=== PATIENT | male | born 1945 | race Caucasian/White ===

== ENCOUNTER 2019-08-30 14:50 | Inpatient (IN) ==
--- NOTE | 2019-08-30 15:41 | Diag Imaging Result Doc PS360 ---
EXAM: CHEST-1 VIEW HISTORY: cough TECHNIQUE: Single view COMPARISON: None. FINDINGS: The lungs are well expanded. The heart is not enlarged. The vessels are not distended. There are no infiltrates. No effusion identified. IMPRESSION: No pneumonia Electronically signed by Wali Jimenez 08/30/2019 3:39 PM
[2019-08-30 16:23] LABS: BASO# 0.02 X1000 (0.0-0.2); BASO% 0.3 % (0.0-0.8); EOS# 0.52 X1000 (0.0-0.7); EOS% 8.3 % (0.0-10.0); HEMATOCRIT 44.6 % (42.0-52.0); HEMOGLOBIN 14.6 g/dL (14.0-18.0); LYMPH# 1.17 X1000 (1.2-3.4); LYMPH% 18.6 % (20.5-51.1); MCH 30.1 PG (27-31); MCHC 32.7 g/dL (33-37); MONO# 0.76 X1000 (0.11-0.59); MONO% 12.1 % (1.7-9.3); MPV 10.5 FL (7.4-10.4); NEUT# 3.81 X1000 (1.4-6.5); NEUT% 60.7 % (42.2-75.2); PLT 197 X1000 (130-400); RBC 4.85 XMIL (4.7-6.1); RDW 13.4 % (11.5-14.5); WBC 6.28 X1000 (4.8-10.8)
[2019-08-30 16:43] LABS: AGAP 9; ALB/GLOB RATIO 1.4; ALKALINE PHOSPHATASE 64 U/L (32-122); BUN 16 mg/dL (8-22); CALCIUM 9.1 mg/dL (8.8-10.2); CHLORIDE 101 mmol/L (98-107); COSMO 281; ESTIMATED GFR > 60; GLUCOSE 110 mg/dL (70-104); GOT 20 U/L (10-34); GPT 22 U/L (10-44); POTASSIUM 4.2 mmol/L (3.5-5.1); SODIUM 140 mmol/L (136-145); TCO2 30 mmol/L (25-35); TOTAL BILIRUBIN 0.32 mg/dL (0.20-1.00); TOTAL PROTEIN 6.8 g/dL (6.3-8.3)
[2019-08-30] MEDS ORDERED: M.V.I.-12 10 ML, FOLIC ACID 1 MG, MAGNESIUM SULFATE 1 GM, THIAMINE 100 MG in NS 1,000 ML IV ONE (17:17)
[2019-08-30] MEDS ORDERED: ZOFRAN IV ONE (17:17)
--- NOTE | 2019-08-30 18:12 | EKG Report ---
Test Performed on : 08/30/2019 5:06:28 PM Test Reason : weakness Blood Pressure : / mmHG Vent. Rate : 074 BPM Atrial Rate : 074 BPM P-R Int : 142 ms QRS Dur : 080 ms QT Int : 390 ms P-R-T Axes : 065 014 064 degrees QTc Int : 432 ms Normal sinus rhythm. Low voltage QRS Inferior infarct , age undetermined Cannot rule out Anterior infarct , age undetermined Abnormal ECG No previous ECGs available Unconfirmed Result
--- NOTE | 2019-08-30 19:00 | PROVIDER DOCUMENTATION ---
This chart was entered by Linda Abdi Scribe, acting as scribe for Angel Graham MD. HPI-General Adult <Steven Curtis. - Last Filed: 08/30/19 20:30> - General Source: patient - History of Present Illness -Gen Adult Nature of Presenting Problems: 73 yowm presents to the ed with c/o with generalized weakness, cough and frequent falls with decreased PO intake last 2 days. pt is fearful to get up due to falls and has just been staying in his bed. he reports last week he had frequent episodes of n/v/d, abdominal pain and lumbar pain. pt denies LOC with any fall and no new injuries from fall. he is concerned of increasing diffuse weakness Location of Pain/Injury: reports: generalized (weakness) Quality of Pain: denies: other (denies pain but has generalized weakness) Severity: reports: moderate Onset/Duration: reports: 2 days ago Timing: reports: still present, intermittent, getting worse Context/Activities at Onset: reports: light activity Modifying Factors: improves with: nothing. worse with: movement Associated Symptoms: reports: cough, diarrhea, fatigue, nausea, vomiting, weakness, trouble walking. denies: back/neck pain, chest pain, fever/chills, shortness of breath Similar Symptoms Previously?: Yes Recently seen or treated by another doctor?: No <Angel Graham - Last Filed: 08/30/19 20:38> - General Chief Complaint: Weakness Stated Complaint: WEAKNESS, COUGH Time Seen by Provider: 08/30/19 15:09 Allergies/Adverse Reactions: Patient Allergies Allergy/AdvReac Type Severity Reaction Status Date / Time soap Allergy ITCHING Verified 07/10/16 19:45 Home Medications: Home Medication List Medication Instructions Recorded Confirmed Last Taken Type Aspirin [Aspir-Low] 81 mg PO DAILY 07/10/16 07/10/16 07/10/16 07:00 History Cephalexin [Keflex] 500 mg PO BID #14 capsule 07/10/16 Unknown Rx Levofloxacin [Levaquin] 500 mg PO DAILY 07/10/16 07/10/16 07/10/16 07:00 History Mv,Toribio,Min/Iron/Folic Acid/Lut 1 each PO DAILY 07/10/16 07/10/16 07/10/16 07:00 History [[employer]] Tamsulosin HCl 0.4 mg PO DAILY 07/10/16 07/10/16 07/10/16 07:00 History Review of Systems - Adult - REVIEW OF SYSTEMS - ADULT Constitutional: denies: chills, fever Eyes: reports: no symptoms reported Ears, Nose, Mouth & Throat: reports: no symptoms reported Cardiovascular: reports: see HPI, edema. denies: chest pain, palpitations Respiratory: reports: see HPI, cough. denies: shortness of breath, wheezing Gastrointestinal: reports: abdominal pain, diarrhea, nausea, poor appetite, vomiting Genitourinary: reports: no symptoms reported Musculoskeletal: reports: see HPI, back pain, muscle weakness (generalized). denies: neck pain Integumentary: reports: no symptoms reported Neurological: denies: dizziness/vertigo, headache/migraines Psychiatric: reports: no symptoms reported Endocrine: reports: no symptoms reported Hematologic/Lymphatic: reports: no symptoms reported Allergic/Immunologic: reports: no symptoms reported All Other Systems: Reviewed and Negative <Angel Graham - Last Filed: 08/30/19 20:38> Past History - Adult - PAST MEDICAL HISTORY-ADULT Review of Records: reports: Old Records Reviewed, Nursing Assessment Review, Medications Reviewed, Social history reviewed & non-contributory. Major Childhood Illnesses: reports: denies history Cardiovascular: reports: denies history Respiratory: reports: denies history Gastrointestinal: reports: denies history Obstetrical/Gynecological: reports: denies history Genitourinary: reports: denies history Musculoskeletal: reports: denies history Neurological: reports: denies history Endocrine/Immune: reports: denies history Other Conditions: reports: denies history - PRIOR SURGERIES/PROCEDURES Surgical/Procedure History: reports: recent surgery (lumbar spine), orthopedic (extremity), back/neck - IMMUNIZATION STATUS Childhood Immunizations: See Nurse Assessment Flu Vaccine: See Nurse Assessment - FAMILY HISTORY Family History: reviewed, not pertinent - SOCIAL HISTORY Smoking: quit greater than 1 year Alcohol Use Frequency: never Living Situation: family <Angel Graham - Last Filed: 08/30/19 20:38> Physical Exam-General - PHYSICAL EXAM-ADULT Initial Vital Signs Reviewed: Yes - CONSTITUTIONAL General Appearance: appears well, alert, no apparent distress (nontoxic in appearance), obese - EYES Eyes: PERRL/EOMI, pink conjunctivae - HEAD, EARS, NOSE, MOUTH & THROAT HENMT: moist mucous membranes - NECK Neck: non-tender, full range of motion, supple, normal inspection - RESPIRATORY Respiratory: chest non-tender, lungs clear, normal breath sounds, other (dry cough) - CARDIOVASCULAR Cardiovascular: normal peripheral pulses, regular rate, rhythm - CHEST (BREASTS) Chest/Breast: deferred - GASTROINTESTINAL (ABDOMEN) Abdominal Exam: normal bowel sounds, soft, tenderness (diffuse mild) - GENITOURINARY Male Genitalia: deferred Rectal Exam: deferred Hemoccult Exam: deferred - LYMPHATIC Lymphatic: no adenopathy - MUSCULOSKELETAL Back Exam: no CVA tenderness, no vertebral tenderness Extremity: normal range of motion, normal inspection - SKIN Integumentary: normal color, normal turgor, warm/dry - NEUROLOGIC Neurologic: grossly normal - PSYCHIATRIC Psych/Mental Status: normal mood/affect, normal thought content, normal thought process, oriented x 3 <Angel Graham - Last Filed: 08/30/19 20:38> Progress - PLAN OF CARE/RESULTS Progress/Plan/Lab Results: Vital Signs - 8 hr 08/30/19 15:38 Temperature 98.4 F Pulse Rate 88 Respiratory Rate 16 Blood Pressure 133/74 O2 Sat by Pulse Oximetry 95 Laboratory Results - last 24 hr 08/30/19 08/30/19 08/30/19 15:56 15:56 15:56 WBC RBC Hgb Hct MCV MCH MCHC RDW Std Deviation Plt Count MPV Immature Gran % (Auto) Neut % (Auto) Lymph % (Auto) [place] % (Auto) Eos % (Auto) Baso % (Auto) Immature Gran # (Auto) Neut # (Auto) Lymph # (Auto) [place] # (Auto) Eos # (Auto) Baso # (Auto) Sodium 140 Potassium 4.2 Chloride 101 Carbon Dioxide 30 Anion Gap 9 BUN 16 Creatinine 1.0 Estimated GFR/1.73 m2 > 60 BUN/Creatinine Ratio 16 Glucose 110 H POC Glucose Calculated Osmolality 281 Calcium 9.1 Total Bilirubin 0.32 AST 20 ALT 22 Alkaline Phosphatase 64 Troponin T High Sens 15 Psk-K-Usyfckeyoeb Pept 37 Total Protein 6.8 Albumin 4.0 Globulin 2.8 Albumin/Globulin Ratio 1.4 08/30/19 08/30/19 15:56 16:26 WBC 6.28 RBC 4.85 Hgb 14.6 Hct 44.6 MCV 92.0 MCH 30.1 MCHC 32.7 L RDW Std Deviation 13.4 Plt Count 197 MPV 10.5 H Immature Gran % (Auto) 0.0 Neut % (Auto) 60.7 Lymph % (Auto) 18.6 L [place] % (Auto) 12.1 H Eos % (Auto) 8.3 Baso % (Auto) 0.3 Immature Gran # (Auto) 0.00 Neut # (Auto) 3.81 Lymph # (Auto) 1.17 L [place] # (Auto) 0.76 H Eos # (Auto) 0.52 Baso # (Auto) 0.02 Sodium Potassium Chloride Carbon Dioxide Anion Gap BUN Creatinine Estimated GFR/1.73 m2 BUN/Creatinine Ratio Glucose POC Glucose 112 H Calculated Osmolality Calcium Total Bilirubin AST ALT Alkaline Phosphatase Troponin T High Sens Oti-H-Krjggyguzgk Pept Total Protein Albumin Globulin Albumin/Globulin Ratio Orders Category Date Time Status CT ABD/PELVIS W/IV CONT ONLY [CT] Stat Exams 08/30/19 18:15 Completed cxr [CHEST-1 VIEW] [RAD] Stat Exams 08/30/19 15:14 Completed CBC WITH ELECTRONIC DIFF [HEME] Stat Lab 08/30/19 15:56 Completed COMPREHENSIVE METABOLIC PANEL [CHEM] Stat Lab 08/30/19 15:56 Completed PRO B-NATRIURETIC PEPTIDE Stat Lab 08/30/19 15:56 Completed TROPONIN T HIGH SENSITIVITY Stat Lab 08/30/19 15:56 Completed Mvi [M.v.i.-12] 10 ml Med 08/30/19 17:17 Discontinued Folic Acid 1 mg Magnesium Sulfate 1 gm Thiamine 100 mg 0.9% Sodium Chloride Inj [Ns] 1,000 ml IV NOW Ondansetron [Zofran] Med 08/30/19 17:17 Discontinued 4 mg IV NOW ONE EKG [EKG] Stat Ther 08/30/19 15:09 Draft Result Diagrams: 08/30/19 15:56 08/30/19 15:56 - CT/MRI 1 CT Study: Abdomen, Pelvis Impression: Abnormal (XAM: CT ABD/PELVIS W/IV CONT ONLY HISTORY: vomiting/diarrhea, abdo pain TECHNIQUE: CT abdomen and pelvis with intravenous contrast. No oral contrast ordered. COMPARISON: None. FINDINGS: No focal hepatic abnormality. There may be fatty infiltration. No calcified gallstones or adjacent inflammation. No splenomegaly. Normal pancreas, adrenal glands, and kidneys. No hydronephrosis. No aortic aneurysm. Moderate atherosclerosis. There are fluid distended loops of small bowel in the mid and left abdomen. The distal small bowel loops are not dilated. There are scattered colonic diverticula. Normal appendix. No abscess. The urinary bladder is only mildly distended. Normal prostate. Prominent degenerative spine changes. IMPRESSION: 1.Small bowel obstruction 2.Colonic diverticulosis This exam was performed using automated exposure control, adjustment of mA or kV according to patient size, and/or use of iterative reconstruction technique. Electronically signed by Wali Jimenez 08/30/2019 8:12 PM 08/30/192011 Interpreting Physician: Wali Jimenez MD Dictated Date/Time: 08/30/192009 cc: Angel Graham MD; None,PCP) <Steven Curtis - Last Filed: 08/30/19 20:30> - PLAN OF CARE/RESULTS Progress/Plan/Lab Results: Vital Signs - 8 hr 08/30/19 15:38 Temperature 98.4 F Pulse Rate 88 Respiratory Rate 16 Blood Pressure 133/74 O2 Sat by Pulse Oximetry 95 Orders Category Date Time Status cxr [CHEST-1 VIEW] [RAD] Stat Exams 08/30/19 15:14 Completed CBC WITH ELECTRONIC DIFF [HEME] Stat Lab 08/30/19 15:09 Uncollected COMPREHENSIVE METABOLIC PANEL [CHEM] Stat Lab 08/30/19 15:09 Uncollected PRO B-NATRIURETIC PEPTIDE Stat Lab 08/30/19 15:09 Uncollected TROPONIN T HIGH SENSITIVITY Stat Lab 08/30/19 15:09 Uncollected EKG [EKG] Stat Ther 08/30/19 15:09 Ordered Result Diagrams: 08/30/19 15:56 08/30/19 15:56 - REASSESSMENT Reassessment #1 Time Reassessed: 17:52 Status: improving (pt is resting in bed) - EKG 1 Time of EKG reading by physician:: 17:06 EKG Read and Signed by:: Angel Graham EKG Interpretation (*Must complete 3 of following elements*): Abnormal Rate: 74 Rhythm: NSR [place]: normal QRS: other (low voltage QRS) OR Interval: normal ST Wave: normal Comments: cannot rule out inferior infarct, age undetermined - XRAY 1 XRAY: Bilateral XRAY Study: Chest Impression: See EMR Report (COMPARISON: None. FINDINGS: The lungs are well expanded. The heart is not enlarged. The vessels are not distended. There are no infiltrates. No effusion identified. IMPRESSION: No pneumonia Electronically signed by aWli Redding 08/30/2019 3:39 PM) - CONSULTS/PCP/HOSPITALIST Notification #1 *Consult/PCP/Hospitalist*: hospitalist dr mccray Time Discussed: 20:38 Consult Disposition: Will see in ED, Admit - CHANGE OF SHIFT REPORT (ED Provider) 1 Report Given and Care Transferred to:: Dr Curtis Time of Transfer: 19:00 <Angel Graham - Last Filed: 08/30/19 20:38> Departure - Departure Date of Disposition Decision: 08/30/19 Time of Disposition Decision: 20:31 Certified Medical Emergency: Emergent <Steven Curtis - Last Filed: 08/30/19 20:30> - Critical Care Note This patient required my direct & personal management of CC.: No <Angel Graham - Last Filed: 08/30/19 20:38> - Departure DIAGNOSIS: Small bowel obstruction Disposition: ADMITTED INPATIENT 09 Condition: Stable Referrals and Follow-Ups: None,PCP [Primary Care Provider] - Attestation - Physician/ LATASHA Attestation Patient care was provided by Advanced Practice Provider:: No The physician spent face to face time with patient:: Yes Advanced Practice Provider documentation review:: Supervising physician onsite and consulted in the evaluation and care of this patient. The physician did have a face to face encounter with the patient. <Angel Graham - Last Filed: 08/30/19 20:38> This chart was documented by the indicated scribe, (Linda Abdi Scribe) and accurately reflects the services I performed and decisions made by me, Angel Graham MD, as attested by the provider's signature.
--- NOTE | 2019-08-30 20:14 | Diag Imaging Result Doc PS360 ---
EXAM: CT ABD/PELVIS W/IV CONT ONLY HISTORY: vomiting/diarrhea, abdo pain TECHNIQUE: CT abdomen and pelvis with intravenous contrast. No oral contrast ordered. COMPARISON: None. FINDINGS: No focal hepatic abnormality. There may be fatty infiltration. No calcified gallstones or adjacent inflammation. No splenomegaly. Normal pancreas, adrenal glands, and kidneys. No hydronephrosis. No aortic aneurysm. Moderate atherosclerosis. There are fluid distended loops of small bowel in the mid and left abdomen. The distal small bowel loops are not dilated. There are scattered colonic diverticula. Normal appendix. No abscess. The urinary bladder is only mildly distended. Normal prostate. Prominent degenerative spine changes. IMPRESSION: 1.Small bowel obstruction 2.Colonic diverticulosis This exam was performed using automated exposure control, adjustment of mA or kV according to patient size, and/or use of iterative reconstruction technique. Electronically signed by Wali Jimenez 08/30/2019 8:12 PM
[2019-08-30] MEDS ORDERED: MORPHINE IV PRN (22:39)
[2019-08-30] MEDS ORDERED: ZOFRAN IV PRN (22:39)
[2019-08-30] MEDS: LOVENOX SUBQ SCH (23:05)
[2019-08-30] MEDS: NS 1,000 ML IV SCH (23:05)
[2019-08-31 01:57] LABS: HEMOGLOBIN A1C 6.4 % (4.8-6.0)
--- NOTE | 2019-08-31 06:06 | HISTORY AND PHYSICAL ---
CHIEF COMPLAINT: Nausea, vomiting, diarrhea, abdominal pain. HISTORY OF PRESENT ILLNESS: A 76-year-old male who presents to the emergency room after having generalized weakness with some falls and decreased p.o. intake for the last couple days. He stated that he has been so weak that he was fearful to get up because he was afraid that he would fall again. He has had nausea, vomiting and diarrhea with abdominal pain for the last two days. He denies any type of chest pain, fever or chills or dyspnea on exertion. He has stated that he has had just a dry cough but it has been persistent. He was treated for bronchitis, I believe, a month ago. His laboratory data was grossly unremarkable but a CT of his abdomen was obtained which showed a small bowel obstruction. He will be admitted for further evaluation and treatment. PAST MEDICAL HISTORY: BPH. PREVIOUS SURGICAL HISTORY: Cervical spine surgery, bone spur removal. SOCIAL HISTORY: Former smoker. No current tobacco. No alcohol. No illicit drugs. FAMILY HISTORY: Has a daughter with hypertension. ALLERGIES: He lists soap stating that it causes itching. No particular type of soap. HOME MEDICATIONS: 81 mg aspirin, multivitamin and Flomax 0.4 mg daily. REVIEW OF SYSTEMS: Fourteen-point review of systems conducted with the patient. Pertinent positive listed above in the HPI. All other systems are reviewed and found to be negative. PHYSICAL EXAMINATION: VITAL SIGNS: Temperature 97.8, pulse 82, respirations 18, blood pressure 179/81, oxygen saturation 96% on room air. GENERAL: Pleasant 73-year-old male alert and oriented x3. He is in no acute distress. HEENT: Head is atraumatic, normocephalic. Pupils equal, round, reactive to light. Extraocular eye movement is intact. Sclera is anicteric. Conjunctiva is pink. Oral mucosa is dry. NECK: Supple. No JVD. No thyromegaly. Trachea is midline. No cervical lymphadenopathy. CARDIAC: S1, S2 appreciated. No murmurs, gallops, rubs. LUNGS: Clear to auscultation. Mild expiratory wheeze that clears with cough. No rhonchi. No rales. Symmetric rise and fall with respirations. ABDOMEN: Soft, nondistended, diffusely tender to palpation. Bowel sounds hyperactive. No pulsatile mass. No organomegaly. EXTREMITIES: No clubbing, cyanosis or edema, 2+ pedal pulses bilaterally. GENITOURINARY: No bladder distention. Patient voids. Otherwise deferred. NEUROLOGICAL: Alert and oriented x3. No focal motor deficits. Otherwise nonfocal examination. DIAGNOSTIC DATA: CT of the abdomen and pelvis shows a small bowel obstruction and diverticulosis. LABORATORY DATA: CBC within normal limits. Chemistry within normal limits other than a glucose of 110. ASSESSMENT: 1. Small bowel obstruction. 2. Nausea, vomiting, diarrhea. 3. Mild volume depletion. 4. Abdominal pain secondary to #1. 5. Benign prostatic hyperplasia. PLAN: Admit patient to the medical floor. Will give normal saline. Hold patient NPO. Hopeful that conservative measures will resolve the small bowel obstruction. Will consider surgical consult if necessary. The patient continues to have nausea and vomiting. Will place an NG tube. Morphine as needed for pain. Continue Flomax with a sip of water daily for BPH. Further recommendations per patient clinical course. Dictated by CONNOR Hager for James Ceron MD cc: CONNOR Hager MD
[2019-08-31 07:00] LABS: BASO# 0.03 X1000 (0.0-0.2); BASO% 0.5 % (0.0-0.8); EOS# 0.68 X1000 (0.0-0.7); EOS% 10.9 % (0.0-10.0); HEMATOCRIT 40.2 % (42.0-52.0); LYMPH% 20.8 % (20.5-51.1); MCHC 32.3 g/dL (33-37); MCV 92.6 FL (81-99); MONO# 0.78 X1000 (0.11-0.59); MONO% 12.5 % (1.7-9.3); MPV 10.2 FL (7.4-10.4); NEUT# 3.45 X1000 (1.4-6.5); NEUT% 55.3 % (42.2-75.2); PLT 171 X1000 (130-400); RBC 4.34 XMIL (4.7-6.1); RDW 13.3 % (11.5-14.5); WBC 6.24 X1000 (4.8-10.8)
[2019-08-31 07:34] LABS: AGAP 11; BUN 11 mg/dL (8-22); CALCIUM 8.2 mg/dL (8.8-10.2); CHLORIDE 102 mmol/L (98-107); COSMO 274; CREATININE 0.9 mg/dL (0.7-1.2); ESTIMATED GFR > 60; GLUCOSE 108 mg/dL (70-104); POTASSIUM 3.5 mmol/L (3.5-5.1); SODIUM 137 mmol/L (136-145); TCO2 24 mmol/L (25-35)
[2019-08-31] MEDS ORDERED: FLOMAX PO SCH (09:00)
--- NOTE | 2019-08-31 09:56 | GENERAL SURGERY CONSULTATION ---
DATE: 08/31/2019 HISTORY OF PRESENT ILLNESS: Mr. Zamora is a pleasant 73-year-old who came to the emergency room yesterday simply complaining of weakness and inability to get up because of his decreased strength. He said what nausea that he had and diarrhea was as a secondary issue to him. He states that since he has been admitted that he is starving to and his bowels moved last night. He typically has a daily bowel movement. He denies any chronic diarrhea. PAST SURGICAL HISTORY: Includes a back surgery. PAST MEDICAL HISTORY: Other medical problems include benign prostatic hypertrophy. MEDICATIONS: Include Flomax, multivitamins, and aspirin. ALLERGIES: He has no particular drug allergies. FAMILY HISTORY: Pertinent for hypertension. SOCIAL HISTORY: He is a former smoker. Former tobacco user. Denies alcohol or illicit drugs. REVIEW OF SYSTEMS: Negative in all 10 subsystems except as noted above. PHYSICAL EXAMINATION: Vital Signs: He is afebrile. Heart rate 80, blood pressure 140/75, respiratory rate 18. Neck: No cervical adenopathy. Lungs: Bilateral breath sounds are present. Heart: Regular rate and rhythm. Abdomen: Rotund, soft, minimally tender. Bowel sounds are present. No hernia are noted. He has no peritoneal signs. Extremities: He has no peripheral edema. He does have palpable pedal pulses. He is awake, alert and oriented. LABORATORY DATA: White count 6200, hemoglobin 13, hematocrit 40. His CT scan is reviewed. He has a few minimally dilated loops of small bowel. ASSESSMENT: Questionable partial small bowel obstruction as designated by CT scan. Clinically, he does not show that. PLAN: The plan will be to start him on liquids today and advance his diet as he can tolerate it. cc: Jeff Patel MD
--- NOTE | 2019-08-31 15:21 | PROGRESS NOTE ---
DATE: 08/31/2019 SUBJECTIVE: The patient seems to be doing better. Actually, he had 2 bowel movements today. He has been placed on a full liquid diet by the surgery department. We will follow this patient closely. His abdomen is still distended/protuberant but positive bowel sounds. OBJECTIVE: Vital Signs: Temperature 98 degrees, pulse 73, respiratory rate 18, blood pressure 145/72, oxygen saturation 95% on room air. HEENT: Head normocephalic. No trauma. PERRLA. Neck: Supple. No JVD. No masses. Central trachea. Chest: Clear to auscultation. No wheezing. No rales. Abdomen: Soft, protuberant. He does have some bowel sounds. He is passing gas. Extremities: No edema, no clubbing, no cyanosis. Neurological Examination: The patient is awake, alert. No focal deficits. Laboratory: WBCs 6.2, hemoglobin 13, hematocrit 40.2, platelets 171,000. Sodium 137, potassium 3.5, chloride 102, bicarbonate 24, BUN 11, creatinine 0.9, glucose 108, calcium 8.2, hemoglobin A1c 6.4. ASSESSMENT AND PLAN: 1. Abdominal pain, concerning for small bowel obstruction. CT scan of the abdomen showed a small bowel obstruction and diverticulosis. Clinically, he seems to be better. He is having bowel movements and passing gas. He has been placed on a liquid diet. I will continue to monitor. Surgery on board. 2. Nausea and vomiting, likely due to the abdominal pain/obstruction, which is getting better. No nausea at this moment. He is tolerating oral intake apparently. 3. Dehydration. Continue with the intravenous fluids. 4. Benign prostatic hypertrophy. I will put this patient back on tamsulosin. 5. History of tobacco use. He stopped smoking already. cc: Giancarlo Piper MD
[2019-08-31] MEDS: NS 1,000 ML IV SCH ×2 (17:49→20:15)
[2019-08-31] MEDS: FLOMAX PO SCH (20:11)
[2019-08-31] MEDS: LOVENOX SUBQ SCH ×2 (20:11→22:42)
[2019-08-31] MEDS: THERA M PLUS PO SCH (20:11)
[2019-08-31] MEDS ORDERED: TORADOL IV PRN (21:46)
--- NOTE | 2019-09-01 06:24 | Diag Imaging Result Doc PS360 ---
EXAM: LUMBAR SPINE 2-VIEWS 08/31/2019 HISTORY: fall TECHNIQUE: Lumbosacral spine AP and lateral COMMENT: The pedicles are intact. There is ankylosis of the visualized portion of the lower thoracic spine and the L1-L3 vertebral bodies. There are large anterior osteophytes at L3-4 and L4-5 and L5-S1. No evidence of acute fracture or subluxation is present. IMPRESSION: Degenerative disc disease and DISH. Electronically signed by Brad Garcia 09/01/2019 6:21 AM
--- NOTE | 2019-09-01 06:26 | Diag Imaging Result Doc PS360 ---
EXAM: CERVICAL SPINE 2-VIEWS 08/31/2019 HISTORY: fall TECHNIQUE: Cervical spine AP and lateral COMMENT: There has been anterior fusion at C3-4. There is apparent ankylosis of the cervical spine from C2 through C5. There has been laminectomy from C4 through C6. There is no prevertebral soft tissue swelling and no evidence of acute fracture or subluxation is present. IMPRESSION: Postsurgical changes. No evidence of acute bony abnormality. Electronically signed by Brad Garcia 09/01/2019 6:23 AM
[2019-09-01 07:46] LABS: AGAP 11; BUN 5 mg/dL (8-22); CALCIUM 8.4 mg/dL (8.8-10.2); CHLORIDE 103 mmol/L (98-107); COSMO 274; CREATININE 0.8 mg/dL (0.7-1.2); ESTIMATED GFR > 60; GLUCOSE 93 mg/dL (70-104); POTASSIUM 3.4 mmol/L (3.5-5.1); SODIUM 139 mmol/L (136-145); TCO2 25 mmol/L (25-35)
--- NOTE | 2019-09-01 08:38 | Diag Imaging Result Doc PS360 ---
EXAM: FLAT/UPRIGHT ABD/1 VIEW CHEST 09/01/2019 HISTORY: questionable sbo TECHNIQUE: Flat and upright abdomen and PA chest COMMENT: The appearance of the chest has not changed significantly since 08/30/2019. There is gas and stool in the colon. The stomach is not distended. There are some distended gas-filled small bowel loops particularly in the mid and left abdomen. This was also present on the lumbar spine series from 08/31/2019. There are small bowel loops in the right lower quadrant which demonstrate normal caliber. IMPRESSION: Ileus versus partial small bowel obstruction. Electronically signed by Brad Garcia 09/01/2019 8:35 AM
--- NOTE | 2019-09-01 09:22 | GENERAL SURGERY PROGRESS NOTE ---
DATE: 09/01/2019 Mr. Zamora is taking his full liquids fine. His bowels have moved. He is ready for solid food. He does admit to some mild abdominal tenderness. He is afebrile, heart rate 88, blood pressure 144/75. White count remains normal. The x-ray shows minimally dilated small bowel loops in the mid abdomen. The plan is to advance his diet and see how he progresses. cc: Jeff Patel MD
--- NOTE | 2019-09-01 11:37 | PROGRESS NOTE ---
DATE: 09/01/2019 SUBJECTIVE: The patient seems to be doing better but he is still complaining of abdominal soreness/pain, mostly at the level of the lower abdomen. He is having bowel movements. His abdominal x-ray showed ileus versus partial small-bowel obstruction, there is gas and stool in the colon, some distended gas-filled small-bowel loops, particularly in the mid and left abdomen. There are small-bowel loops in the right lower quadrant which demonstrate normal caliber. His diet has been advanced. I have requested Physical Therapy to evaluate this patient. Apparently, he fell today because he lost his balance, x-rays were negative. OBJECTIVE: Vital Signs: Temperature 98.2 degrees, pulse 88, respiratory rate 20, blood pressure 144/75, oxygen saturation 100% on room air. HEENT: Head normocephalic, no trauma. PERRLA. Neck: Supple. No JVD. No masses. Central trachea. Chest: Clear to auscultation. No wheezing. No rales. Abdomen: Soft, protuberant. He does have some bowel sounds. He is passing gas. His abdomen is also distended and tender to palpation, mostly at the level of the lower abdomen. Extremities: No edema, no clubbing, no cyanosis. Neurological: The patient is awake and alert, he is oriented x3. No focal deficits. LABORATORY DATA: Sodium 139, potassium 3.4, chloride 103, bicarbonate 25, BUN 5, creatinine 0.8, glucose 93, calcium 8.4. ASSESSMENT AND PLAN: 1. Abdominal pain concerning for small-bowel obstruction. CT of the abdomen and x-ray showed the possibility of a small-bowel obstruction, but he is having bowel movements and passing some gas. His diet has been advanced today. Surgery Department on board. Let us see how he does. No nausea, no vomiting. 2. Nausea, vomiting, better. 3. Dehydration. Continue IV fluids. He seems to be euvolemic. 4. Benign prostatic hypertrophy. Continue with tamsulosin. 5. History of tobacco use. He stopped smoking already. cc: Giancarlo Piper MD
[2019-09-01] MEDS: AVODART PO SCH (12:25)
[2019-09-01] MEDS: NS 1,000 ML IV SCH ×2 (15:10→16:49)
[2019-09-01] MEDS: THERA M PLUS PO SCH (21:38)
[2019-09-01] MEDS: LOVENOX SUBQ SCH (21:38)
[2019-09-01] MEDS: FLOMAX PO SCH (21:38)
[2019-09-02 07:14] LABS: AGAP 10; BUN 5 mg/dL (8-22); CALCIUM 8.6 mg/dL (8.8-10.2); CHLORIDE 104 mmol/L (98-107); COSMO 275; CREATININE 0.8 mg/dL (0.7-1.2); ESTIMATED GFR > 60; GLUCOSE 94 mg/dL (70-104); MAGNESIUM 2.3 mg/dL (1.5-2.7); PHOSPHORUS 3.1 mg/dL (2.7-4.5); POTASSIUM 3.7 mmol/L (3.5-5.1); SODIUM 139 mmol/L (136-145); TCO2 25 mmol/L (25-35)
[2019-09-02 07:28] VITALS: BP 170/88
[2019-09-02] MEDS: NS 1,000 ML IV SCH ×2 (07:35→10:30)
--- NOTE | 2019-09-02 08:04 | GENERAL SURGERY PROGRESS NOTE ---
DATE: 09/02/2019 SUBJECTIVE: Mr. Zamora is sitting up in a chair. He is eating solid food without problem. His bowels are moving. He is passing flatus. He reports some mild tenderness, but he is not particularly tender upon palpation. He remains afebrile with stable hemodynamics. ASSESSMENT: No evidence of small bowel obstruction. PLAN: I will continue with a regular diet. He does not need any operative intervention. cc: Jeff Patel MD
[2019-09-02] MEDS: AVODART PO SCH (12:23)
--- NOTE | 2019-09-02 16:36 | DISCHARGE SUMMARY ---
ADMISSION DATE: 08/30/2019 DISCHARGE DATE: 09/02/2019 DISCHARGE DIAGNOSES: 1. Abdominal pain, initially admitted due to small bowel obstruction. 2. Nausea and vomiting, resolved. 3. Dehydration, resolved. 4. Benign prostatic hypertrophy. 5. History of tobacco use. PROCEDURES PERFORMED: 1. Chest x-ray dated 08/30/2019: Impression--no pneumonia. 2. Abdomen and pelvis CT scan dated 08/30/2019: Impression--small bowel obstruction, colonic diverticulosis. 3. Cervical spine x-ray dated 08/31/2019: Impression--postsurgical changes. No evidence of acute bony abnormalities. 4. Lumbar spine x-ray dated 08/31/2019: Impression--degenerative disc disease and DISH. 5. Abdomen x-ray dated 09/01/2019: Impression--ileus versus partial small bowel obstruction. CONSULTS: Surgery Department, Dr. Patel. HOSPITAL COURSE: This is a 73-year-old, male admitted on 08/30/2019, with history of BPH, who presented with generalized weakness with some falls and decreased p.o. intake for the past few days. He stated that he has been weak and was fearful to get up because he was afraid to fall again. He has been having nausea, vomiting and diarrhea with abdominal pain for 2 days. He denied any type of chest pain, fever, chills, or dyspnea on exertion. Some dry cough. He was treated for bronchitis as an outpatient a month ago. Laboratory data was grossly unremarkable, but the CT scan of the abdomen showed a small bowel obstruction. He was admitted and he was placed on the floor. Surgery Department evaluated this patient, but this patient started having some bowel movements and the pain was getting better on a daily basis, and actually during this hospitalization he had around 7 bowel movements and he was able to eat 100% of his food. The patient is feeling much better today. He has some soreness to palpation at the level of mostly the lower abdomen. Surgery Department has been following this patient closely. They recommended to continue with the regular diet and he does not need any operative intervention, and no evidence of small bowel obstruction. Today this patient will be discharged home. PHYSICAL EXAMINATION: Vital Signs: Temperature 97.9 degrees, pulse 79, respiratory rate 21, blood pressure 170/88, oxygen saturation 94% on room air. HEENT: Head normocephalic, no trauma. PERRLA. Neck: Supple. No JVD. No masses. Central trachea. Chest: Clear to auscultation. No wheezing. No rales. Abdomen: Soft, protuberant. He does have bowel sounds. He is passing gas. He is having some soreness to palpation at the level of the lower abdomen. Extremities: No edema, no clubbing, no cyanosis. Neurological: The patient is awake, alert. He is oriented x3. No focal deficits. LABORATORY: Sodium 139, potassium 3.7, chloride 104, bicarbonate 25, BUN 5, creatinine 0.8, glucose 94, calcium 8.6, phosphorus 3.1, magnesium 2.3. DISCHARGE MEDICATIONS: Aspirin 81 mg p.o. at bedtime, Avodart 0.5 mg p.o. daily, Culturelle 1 tablet p.o. b.i.d., multivitamin 1 tablet p.o. at bedtime, and tamsulosin 0.4 mg p.o. at bedtime. FOLLOWUP: With his primary care doctor in 1 week. cc: Giancarlo Piper MD
== END 2019-09-02 12:51 | disposition home or self-care (01) | DRG 390 ==
LOC: ED 14:50 → SUATTDRO 22:23 → 4N 22:23
PROVIDERS: ATTEND Internal Medicine